=== PATIENT | male | born 1985 | race Caucasian/White ===

== ENCOUNTER 2017-05-14 11:21 | Emergency (ER) | payer OTHER, MEDICAID ==
[2017-05-14 11:25] VITALS: TEMP 98.2
--- NOTE | 2017-05-14 13:09 | EDPHY ---
H & P Stated Complaint: thumb lac Time Seen by Provider: 05/14/17 13:09 HPI/ROS: HPI: This is a 31-year-old male who presents with Chief Complaint: Left thumb cut Location: Left thumb Quality: Cut Duration: 1 hour prior to arrival Signs and Symptoms: + bleeding, no radiation, no numbness, no weakness, no tingling, no decreased range of motion Timing: Sudden Severity: Moderate Context: Patient was cutting chives while at work and cut his left thumb. The cut started to bleed immediately. He applied direct pressure to the bleeding with transient relief. Right hand dominant. Reports his tetanus up-to-date Modifying Factors: Direct pressure transient relief Comment: ROS: Constitutional: No fever, no chills, no weight loss Eyes: No blurred vision Respiratory: No shortness of breath, no cough Cardiovascular: No chest pain Gastrointestinal: No nausea, no vomiting no diarrhea Genitourinary: No dysuria Extremities: No myalgias Neurologic: No weakness, no numbness Skin: No rashes Hematologic: No bruising, no bleeding MEDICAL/SURGICAL/SOCIAL HISTORY: Generally healthy. Works as a cook. Denies any surgical history. Source: Patient Exam Limitations: No limitations - Personal History Current Tetanus/Diphtheria Vaccine: Yes Current Tetanus Diphtheria and Acellular Pertussis (TDAP): Yes - Medical/Surgical History Hx Asthma: No Hx Chronic Respiratory Disease: No Hx Diabetes: No Hx Cardiac Disease: No Hx Renal Disease: No Hx Cirrhosis: No Hx Alcoholism: No Hx HIV/AIDS: No Hx Splenectomy or Spleen Trauma: No Other PMH: DENIES - Social History Smoking Status: Never smoked - Physical Exam Exam: General appearance: EXTREMITY: Left thumb 2 cm linear laceration between the PIP joint and nail; flexion/extension intact. NEURO: light touch sensation intact DIFFERENTIAL DIAGNOSIS: After history and physical exam differential diagnosis was considered for laceration, nerve injury, tendon injury. Constitutional: Initial Vital Signs Temperature (C) 36.8 C 05/14/17 11:23 Heart Rate 49 L 05/14/17 11:23 Respiratory Rate 16 05/14/17 11:23 Blood Pressure 129/78 H 05/14/17 11:23 O2 Sat (%) 97 05/14/17 11:23 O2 Delivery Mode Room Air Allergies/Adverse Reactions: No Known Allergies Allergy (Unverified 04/18/16 23:27) Home Medications: Medication Instructions Recorded NK [No Known Home Meds] 12/21/15 Medical Decision Making Procedures: Procedure: Laceration repair. Verbal consent was obtained from the patient. The simple linear 2 cm deep on the left thumb laceration was anesthetized in the usual fashion for mL of 1% lidocaine. The wound was irrigated, draped and explored to its base with a gloved finger. There were no deep structures involved. No tendon injury was identified. The wound was repaired with # 4, 6-0 Prolene in a simple interrupted pattern. Good hemostasis was achieved. Patient tolerated procedure well. The procedure was performed by myself. ED Course/Re-evaluation: Wound care and laceration repair Tetanus up-to-date # 4 Sutures were placed; Xeroform; gauze applied and then placed in finger splint to prevent range of motion and wound dehiscence. No signs of neurovascular compromise/tenting of skin/compartment syndrome/ extremities and joints examined above and below area of concern and are neurovascularly intact/no tendon injury. Departure - Departure Disposition: Home, Routine, Self-Care Clinical Impression: Laceration of left thumb without damage to nail Qualifiers: Encounter type: initial encounter Foreign body presence: without foreign body Qualified Code(s): S61.012A - Laceration without foreign body of left thumb without damage to nail, initial encounter Condition: Good Instructions: Finger Laceration (ED) Additional Instructions: Keep the dressing and splint in place for 48 hours. After 48 hours, you may remove the dressing; wash the site daily with mild soap and water; then pat dry. Take ibuprofen 600-800 mg every 6-8 hours with food as needed for pain and inflammation. Apply ice for 30 minutes at a time; 2-3 times per day for the next 1-2 days. Return to this emergency room to have the sutures removed in 7-10 days. Referrals: [facility],. [Clinic] - As per Instructions
[2017-05-14 14:35] VITALS: BP 136/80; PULSE 72; RESP 14; O2SAT 98
== END 2017-05-14 14:35 | disposition home or self-care (01) ==
PROC: 0HQGXZZ Repair Left Hand Skin, External Approach (ICD-10-PCS; principal; 2017-05-14)
DX: S61.012A Laceration without foreign body of left thumb without damage to nail, initial encounter (principal); W26.9XXA Contact with unspecified sharp object(s), initial encounter; Y92.69 Other specified industrial and construction area as the place of occurrence of the external cause; Y99.0 Civilian activity done for income or pay; Y93.89 Activity, other specified
CPT/HCPCS: L3925